=== PATIENT | male | born 1950 | race Caucasian/White ===

== ENCOUNTER 2017-03-25 22:31 | Emergency (ER) | payer OTHER, MEDICAID ==
--- NOTE | 2017-03-25 23:26 | EDPHY ---
H & P Smoking Status: Never smoked Time Seen by Provider: 03/25/17 23:14 HPI/ROS: CHIEF COMPLAINT: Left hip pain dislocation HISTORY OF PRESENT ILLNESS: This is a 66-year-old male patient presenting to the emergency department complaining of left hip pain possible dislocation. Patient states he has had numerous surgeries on his left hip. Last left hip surgery on February 15 at [facility], where he has had all of his surgeries. Patient states he is visiting here with his son, patient was sitting on a park bench went to bend over his hips felt a pop to his left hip. Unable to ambulate, denies any other complaints REVIEW OF SYSTEMS: Constitutional: No fever, no chills. Eyes: No discharge. No blurred vision Cardiovascular: No chest pain, no palpitations. Respiratory: No cough, no shortness of breath. Gastrointestinal: No abdominal pain Musculoskeletal: No back pain. Left hip pain decreased range of motion Skin: No rashes. Neurological: No headache. (Rubi Bee) Procedure: Procedural sedation. Indication: Left hip dislocation. A pre-sedation evaluation was completed on the patient just prior to the procedure. Patient is an appropriate candidate for procedural sedation with ASA class 1. The risks of the sedation were discussed including but not limited to dysrhythmia, need for airway intervention or general anesthesia, disability, ; and verbal consent obtained. A timeout was observed and patient's identity confirmed. The patient was sedated with fentanyl and propofol. The patient was monitored with continuous pulse oximetry, capnography , and cafeteria monitor. There were no complications and no significant hypoxemia. I remained at the bedside for the sedation. The total time I spent in the procedural sedation was 20 minutes. Procedure: Dislocation reduction. The left hip was reduced in the usual fashion without complications. Post reduction the patient's neurovascular exam is normal. Post reduction x-ray demonstrates reduction of the joint to the anatomic position. The procedure was performed by myself. Patient improved after reduction. Repeat x-ray shows the left hip prosthesis in good position. Patient is awake alert without complaint. Will discharge with follow-up with his orthopedic surgeon in 2-3 days. (Godfrey Keating) Physical Exam: General Appearance: Alert and no distress. Appears uncomfortable Eyes: No pallor no injection. Respiratory: Chest is nontender, nonlabored respiratory effort Neurological: No focal deficits AAO x3 Cardiac: regular rate and rhythm Gastrointestinal: Abdomen is soft and nontender, no masses. Musculoskeletal: Neck is supple and nontender. Extremities: Left hip obvious deformity, decreased range of motion. Positive CMS intact Skin: No rashes or lesions. (Rubi Bee) Constitutional: Initial Vital Signs Temperature (C) 36.4 C 03/25/17 22:39 Heart Rate 76 03/25/17 22:39 Respiratory Rate 18 03/25/17 22:39 Blood Pressure 143/62 H 03/25/17 22:39 O2 Sat (%) 91 L 03/25/17 22:39 O2 Delivery Mode Room Air Allergies/Adverse Reactions: No Known Allergies Allergy (Unverified 03/25/17 22:38) Home Medications: Medication Instructions Recorded Aspirin 81mg (*) 03/25/17 Protonix 03/25/17 Medical Decision Making ED Course/Re-evaluation: Discussed ED plan of care: X-ray of left hip. Discussed x-ray results positive hip dislocation, needs reduction 0100: Transfer care and reduction to Dr. Keating.. Patient stable not in any distress (Rubi Bee) Differential Diagnosis: Other differential diagnosis considered but not limited to femur fracture, new acute greater trochanter fracture, and pelvis fracture (Rubi Bee) - Data Points Medications Given: Discontinued Medications Hydromorphone HCl (Dilaudid) 1 mg IVP EDNOW ONE Stop: 03/25/17 23:28 Last Admin: 03/25/17 23:43 Dose: 1 mg Departure - Departure Disposition: Home, Routine, Self-Care Clinical Impression: Hip dislocation, left Qualifiers: Encounter type: initial encounter Qualified Code(s): S73.005A - Unspecified dislocation of left hip, initial encounter Condition: Good Instructions: Hip Dislocation (ED) Additional Instructions: Follow up with her orthopedic surgeon in 2-3 days for re-evaluation. Return to the emergency depart for increasing weakness, pain, difficulty walking , or any other concerns. Referrals: Patient,NotPresent [Primary Care Provider] - As per Instructions
[2017-03-25] MEDS ORDERED: HYDROmorphONE/DILAUDID 1 MG/ML SYR IVP ONE (23:27)
[2017-03-26] MEDS ORDERED: PROPOFOL 200 MG/20 ML VIAL ONE ×2 (01:01→01:30)
[2017-03-26] MEDS ORDERED: fentaNYL 100 MCG/2 ML INJ ONE ×2 (01:01)
[2017-03-26] MEDS ORDERED: fentaNYL 100 MCG/2 ML INJ IVP ONE (01:22)
[2017-03-26] MEDS ORDERED: PROPOFOL 200 MG/20 ML VIAL IVP ONE (01:25)
[2017-03-26] MEDS ORDERED: NS 1,000 ML IV ONE (01:25)
[2017-03-26 02:59] VITALS: TEMP 98.1
[2017-03-26 03:13] VITALS: RESP 16
[2017-03-26 04:18] VITALS: BP 113/65; PULSE 71; O2SAT 100
== END 2017-03-26 03:12 | disposition home or self-care (01) ==
LOC: EDBD 22:31
PROC: 0SSBXZZ Reposition Left Hip Joint, External Approach (ICD-10-PCS; principal; 2017-03-25)
DX: T84.021A Dislocation of internal left hip prosthesis, initial encounter (principal); Z79.82 Long term (current) use of aspirin; X58.XXXA Exposure to other specified factors, initial encounter; Y82.8 Other medical devices associated with adverse incidents; Y92.830 Public park as the place of occurrence of the external cause; Y99.8 Other external cause status; Y93.89 Activity, other specified
CPT/HCPCS: 96374; J1170; J2704; J3010